=== PATIENT | female | born 1950 | race Hispanic/Latino ===

== ENCOUNTER → 2025-05-03 | Outpatient (RCR) | payer MEDICARE, BC | LOC: PT 04-08 09:33 | PROVIDERS: ATTEND Orthopaedic Surgery | DX: Z47.1 Aftercare following joint replacement surgery (principal); Z96.651 Presence of right artificial knee joint; M13.861 Other specified arthritis, right knee ==

== ENCOUNTER 2025-06-02 10:00 | Outpatient (RCR) | payer MEDICARE, BC | END 2025-06-03 | LOC: PT 10:00 | PROVIDERS: ATTEND Orthopaedic Surgery | DX: M17.11 Unilateral primary osteoarthritis, right knee (principal); Z96.651 Presence of right artificial knee joint ==

== ENCOUNTER 2025-07-02 10:00 | Outpatient (RCR) | payer MEDICARE, BC | END 2025-07-04 | LOC: PT 10:00 | PROVIDERS: ATTEND Orthopaedic Surgery | DX: Z47.89 Encounter for other orthopedic aftercare (principal); M17.11 Unilateral primary osteoarthritis, right knee ==

== ENCOUNTER 2025-07-21 13:00 | Outpatient (RCR) | payer MEDICARE, BC | END 2025-08-03 | LOC: PT 13:00 | PROVIDERS: ATTEND Orthopaedic Surgery | DX: Z47.89 Encounter for other orthopedic aftercare (principal); M17.11 Unilateral primary osteoarthritis, right knee ==